=== PATIENT | female | born 1940 | race Hispanic/Latino ===

== ENCOUNTER 2019-03-14 07:47 | Day surgery (SDC) | payer MEDICARE ==
[2019-03-14] MEDS ORDERED: VERSED ONE (08:36)
--- NOTE | 2019-03-14 08:42 | Anesthesia Day of Surgery ---
Anesthesia Day of Surgery - Day of Surgery Patient Examined: Yes Patient H&P Reviewed: Yes Patient is NPO: Yes Beta Blockers: No
--- NOTE | 2019-03-14 08:43 | Anesthesia Consultation ---
Anesthesia Consult and Med Hx Date of service: 03/14/19 - Airway Anesthetic Teeth Evaluation: Good ROM Head & Neck: Adequate Mental/Hyoid Distance: Adequate Mallampati Class: Class II Intubation Access Assessment: Probably Good - Pulmonary Exam CTA: Yes - Cardiac Exam Cardiac Exam: RRR - Pre-Operative Health Status ASA Pre-Surgery Classification: ASA3 Proposed Anesthetic Plan: MAC - Cardiovascular System Hx Hypertension: Yes - Other Systems Hx Obesity: Yes
[2019-03-14] MEDS ORDERED: NACL 0.9% 1000 ML 1,000 ML IV SCH (09:00)
[2019-03-14] MEDS ORDERED: DIPRIVAN 10 MG/ML IV ONE ×2 (09:18)
--- NOTE | 2019-03-14 09:58 | Procedure Note ---
Date of procedure: 03/14/19 Pre-op diagnosis: Colon Polyp Screening Post-op diagnosis: other (no Colon Polyps noted/Extensive,Left Colon Diverticular Disease/Minor,Internal Hemorrhoid. Encourage fiber intake and follow up in 1 to 2 weeks ([phone]).) Procedure: Colonoscopy Anesthesia: MAC Surgeon: ALEXA DUNBAR Estimated blood loss: none Pathology: none Condition: stable Disposition: same day (Encourage fiber intake and resume home medication and follow up in 1 to 2 weeks ([phone]).)
[2019-03-14 10:30] VITALS: BP 138/54
--- NOTE | 2019-03-14 12:08 | Operative Report ---
PROCEDURE: Colonoscopy. INDICATIONS: This is a 78-year-old white female with a prior history of ovarian cancer who had a colonoscopy done as part of colon polyp screening. Last colonoscopy was done several years ago. DESCRIPTION OF PROCEDURE: The procedure was done after getting informed consent with MAC anesthesia. Initial rectal exam was unremarkable. Instrument was passed through the rectum onto the cecum, which was identified with ileocecal valve and appendiceal orifice. Visualization was fair to good. Cecum, ascending colon, transverse colon showed normal mucosa. There was moderately severe and extensive diverticular disease noted in the left colon involving the descending colon and the sigmoid and the rectum showed minor internal hemorrhoid in the retroverted view. There were no colon polyps noted. No biopsies done. No bleeding associated with the procedure or any complications associated with the procedure. ASSESSMENT: Colon polyp screening. No colon polyps noted. Extensive left colon diverticular disease. Minor internal hemorrhoid. PLAN: To encourage the patient to take fiber supplements. Follow up in the office in 1-2 weeks' time. The procedure was done in the presence of RN, Rufina Bass. JOB# [id number] NICK/FREEDOM
== END 2019-03-14 07:48 | disposition home or self-care (01) ==
LOC: GIO 07:47
DX: Z12.11 Encounter for screening for malignant neoplasm of colon (principal); K57.30 Diverticulosis of large intestine without perforation or abscess without bleeding; K64.8 Other hemorrhoids; E78.00 Pure hypercholesterolemia, unspecified; I10 Essential (primary) hypertension; E66.9 Obesity, unspecified; Z85.43 Personal history of malignant neoplasm of ovary; Z68.45 Body mass index [BMI] 70 or greater, adult; Z90.710 Acquired absence of both cervix and uterus; Z96.652 Presence of left artificial knee joint; Z98.890 Other specified postprocedural states; Z79.899 Other long term (current) drug therapy; Z88.2 Allergy status to sulfonamides
CPT/HCPCS: G0121; J2250; J2704; J7030